=== PATIENT | male | born 1995 | race Caucasian/White ===

== ENCOUNTER 2023-07-29 18:10 | Emergency (ER) | payer SELFPAY ==
[~2023-07-29] VITALS: Ht 172.7 cm; Wt 79.4 kg
[~2023-07-29 18:10] MED LIST: NAPROSYN500 MG PO; NKHM; VICO75300 PO; ZITHROMAX Z-PA250 MG PO
[2023-07-29 18:19] VITALS: BP 134/76
== END 2023-07-29 20:21 | disposition home or self-care (01) ==
LOC: ED 18:10
DX: S92.311A Displaced fracture of first metatarsal bone, right foot, initial encounter for closed fracture (principal); W20.8XXA Other cause of strike by thrown, projected or falling object, initial encounter; Y93.89 Activity, other specified; Y92.89 Other specified places as the place of occurrence of the external cause; Y99.0 Civilian activity done for income or pay